=== PATIENT | male | born 1990 | race Caucasian/White ===

== ENCOUNTER → 2020-11-25 09:03 | Outpatient (BNVA) | payer MEDICAID, SELFPAY | PROVIDERS: Family Provider Nurse Practitioner Family; Visit Provider Registered Nurse | DX: S06.9X1A Unspecified intracranial injury with loss of consciousness of 30 minutes or less, initial encounter (principal) | CPT/HCPCS: 80053; 82607; 85025; 86141 ==

== ENCOUNTER → 2020-12-02 11:23 | Outpatient (BNVA) | payer MEDICAID, SELFPAY | PROVIDERS: Family Provider Nurse Practitioner Family; Visit Provider Registered Nurse | DX: M1A.0710 Idiopathic chronic gout, right ankle and foot, without tophus (tophi) (principal) | CPT/HCPCS: 80053; 84550; 85651; 86140 ==

== ENCOUNTER → 2020-12-03 09:09 | Outpatient (BNVA) | payer MEDICAID, SELFPAY | PROVIDERS: Family Provider Nurse Practitioner Family; Visit Provider Registered Nurse | DX: R79.82 Elevated C-reactive protein (CRP) (principal) | CPT/HCPCS: 86431 ==

== ENCOUNTER → 2021-08-03 12:10 | Outpatient (BNVA) | payer MEDICAID, SELFPAY | PROVIDERS: Family Provider Nurse Practitioner Family; PCP Registered Nurse; Referring Provider Registered Nurse; Visit Provider Specialist | DX: R41.1 Anterograde amnesia (principal); G43.711 Chronic migraine without aura, intractable, with status migrainosus; F41.8 Other specified anxiety disorders; S06.9X1S Unspecified intracranial injury with loss of consciousness of 30 minutes or less, sequela; V89.2XXS Person injured in unspecified motor-vehicle accident, traffic, sequela | CPT/HCPCS: 96116; 99204; 99205 ==

== ENCOUNTER → 2022-03-17 11:39 | Outpatient (BNVA) | payer MEDICAID, SELFPAY | PROVIDERS: Family Provider Nurse Practitioner Family; PCP Registered Nurse; Visit Provider Registered Nurse | DX: M1A.0710 Idiopathic chronic gout, right ankle and foot, without tophus (tophi) (principal) | CPT/HCPCS: 80053; 85025 ==

== ENCOUNTER 2022-05-17 18:40 | Inpatient (IN) | payer MEDICAID, SELFPAY ==
[2022-05-17 18:45] VITALS: BP 144/84; PULSE 87; RESP 16; TEMP 36.5; O2SAT 97
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
[2022-05-17 19:22] LABS: Basophils # 0.1 10^3/uL (0.0-0.1); Basophils % 0.9 %; Eosinophils # 0.2 10^3/uL (0.0-0.8); Eosinophils % 1.6 %; Hematocrit 49.8 % (42.0-52.0); Hemoglobin 16.2 g/dL (11.7-16.6); Lymphocytes # 3.4 10^3/uL (0.8-4.8); Lymphocytes % 35.3 %; Mean Corpuscular HGB Conc 32.5 g/dL (30.0-36.0); Mean Corpuscular Hemoglobin 28.2 pg (28.0-34.0); Mean Corpuscular Volume 86.6 fl (80-94); Mean Platelet Volume 10.5 fL (7.4-10.4); Monocytes # 0.7 10^3/uL (0.2-0.9); Neutrophils # 5.27 10^3/uL (1.8-7.7); Neutrophils % 54.9 %; Nucleated Red Blood Cells % 0 %; Platelet Count 328 10^3/cmm (130-400); Red Blood Count 5.75 10^6/uL (4.1-5.3); Red Cell Distribution Width 13.5 % (12.1-15.1); White Blood Count 9.6 10^3/uL (4.0-10.0)
[2022-05-17 19:40] LABS: Acetaminophen < 5.0 ug/mL (10-30); Alanine Aminotransferase 57 U/L (0-41); Albumin Level 4.7 g/dL (3.5-5.2); Alcohol Level < 10 mg/dL (0-10); Alkaline Phosphatase 119 U/L (40-130); Anion Gap 16.1 (5-19); Aspartate Amino Transferase 38 U/L (0-40); Blood Urea Nitrogen 8 mg/dL (6-20); Calcium 9.1 mg/dL (8.5-10.5); Carbon Dioxide 23 mmol/L (22-29); Chloride 107 mmol/L (98-107); Globulin 3.5 g/dL (1.3-4.6); Glomerular Filtration Rate 190.3 mL/min (90-130); Glucose 80 mg/dL (65-115); Osmolality Calculated 291 mOsm/kg (285-295); Potassium 4.1 mmol/L (3.5-5.1); Salicylate < 0.3 mg/dL (3-10); Sodium 142 mmol/L (136-145); Total Bilirubin 0.3 mg/dL (0.15-1.2); Total Protein 8.2 g/dL (6.6-8.7)
[2022-05-17 21:03] VITALS: BP 129/97; PULSE 87; RESP 16; O2SAT 96
[2022-05-17 21:12] VITALS: BP 131/90; PULSE 82; RESP 22; TEMP 36.4; O2SAT 96
[2022-05-17 21:40] VITALS: BP 131/90; PULSE 82; RESP 22; TEMP 36.4; O2SAT 96
[2022-05-17 21:55] LABS: Thyroid Stimulating Hormone 3.35 uIU/mL (0.27-4.20)
[2022-05-17 22:22] LABS: Amphetamines Screen Urine Negative (Negative); Barbiturates Screen Urine Negative (Negative); Benzodiazepines Screen Urine Negative (Negative); Cocaine Screen Urine Negative (Negative); Opiate Screen Urine Negative (Negative); PCP Screen Urine Negative (Negative); THC Screen Urine Negative (Negative)
[2022-05-17] MEDS: hyDROXYzine 25 mg Capsule 50 MG PO (22:24)
[2022-05-17] MEDS: trazodone 50 mg Tablet PO (22:24)
[2022-05-17] MEDS: nicotine 2 mg Gum BUCCAL (22:39)
[2022-05-18 06:00] VITALS: BP 97/62; PULSE 88; RESP 20; TEMP 36.6; O2SAT 97
[2022-05-18] MEDS: nicotine 21 mg Patch 1 PATCH TRANSDERMA (11:28)
[2022-05-18 14:00] VITALS: BP 106/75; PULSE 99; RESP 16; TEMP 36.7; O2SAT 98
[2022-05-18] MEDS: nicotine 4 mg lozenge MUCOUS MEM ×3 (15:08→19:12)
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
[2022-05-18] MEDS: venlafaxine ER (24HR) 150 mg Capsule PO (17:03)
[2022-05-18] MEDS: hyDROXYzine 25 mg Capsule 50 MG PO (20:23)
[2022-05-18] MEDS: trazodone 50 mg Tablet PO (20:24)
[2022-05-18 22:00] VITALS: BP 125/84; PULSE 90; RESP 16; TEMP 36.4; O2SAT 95
[2022-05-19 06:00] VITALS: RESP 17
[2022-05-19] MEDS: venlafaxine ER (24HR) 150 mg Capsule PO (09:32)
[2022-05-19] MEDS: allopurinol 100 mg Tablet 200 MG PO (09:32)
[2022-05-19] MEDS: nicotine 4 mg lozenge MUCOUS MEM ×4 (11:01→21:50)
[2022-05-19 14:00] VITALS: BP 149/84; PULSE 95; RESP 18; TEMP 36.7; O2SAT 95
--- NOTE | 2022-05-19 17:39 | W.PM.NPUPNS ---
Subjective NPU Subjective: Patient is a 32-year-old white male with significant history of traumatic brain injury and head trauma with significant history of loss of consciousness. Patient had acknowledged having problems with managing his anger. He states that he had been feeling calm here. He had endorsed some depression and stated that he was motivated to get help with managing his anger. He had attended groups today. He had reported having increased problems with managing his frustration and stated that he continued to at times have intense anger outbursts. Patient was not aggressive here on the unit and appeared to be compliant and friendly Mental Status Exam MSE Comments: This is a casually dressed white male who appeared in no acute distress. His gait was slow and steady with a slight limp noted on his left side. His speech appeared to have some dysarthria but normal in regards to productivity and volume. There is no clear evidence of any tics or tremors appreciated. His mood was described as okay. His affect was blunted. There was no clear evidence of delusional thinking. He did not appear to be responding to internal stimuli. His thought process was linear and logical. He had denied suicidal ideation and denied any homicidal ideation. He was alert and oriented to place year but not month day or date. Recent and remote memory appeared at baseline. His attention span was variable.. His insight and judgment were impaired. His impulse control appeared poor as well. 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 He would likely benefit from some medication adjustment to target anger issues and poor frustration tolerance. 1.? Engage patient in individual ,milieu, and group therapy 2.? We will attempt to gather collateral information from previous providers 3.? TO-15 minute checks on the unit 4. Restart current medications with consideration for the use of an antipsychotic to target agitation and aggression. 5. Start invega 3mg at night to target aggression Involuntary Hold Information 96 Hour Hold: 96 Hour Involuntary Admission: No Attestations NPU Medical Necessity Statement*: Inpatient hospitalization is medically necessary and appears to be clinically appropriate at this time. We will monitor and initiate medications as indicated with his likely length of stay of 5 to 7 days. 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
[2022-05-19 21:50] VITALS: BP 143/83; PULSE 97; RESP 15; TEMP 36.6; O2SAT 94
[2022-05-19] MEDS: trazodone 50 mg Tablet PO (21:50)
[2022-05-19] MEDS: hyDROXYzine 25 mg Capsule 50 MG PO (21:50)
[2022-05-19] MEDS: paliperidone ER 3 mg Tablet PO (21:50)
[2022-05-20 06:00] VITALS: RESP 17
[2022-05-20] MEDS: allopurinol 100 mg Tablet 200 MG PO (08:42)
[2022-05-20] MEDS: venlafaxine ER (24HR) 150 mg Capsule PO (08:42)
[2022-05-20] MEDS: nicotine 21 mg Patch 1 PATCH TRANSDERMA (12:14)
[2022-05-20 14:00] VITALS: BP 128/78; PULSE 95; RESP 20; TEMP 36.6; O2SAT 96
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
[2022-05-20] MEDS: hyDROXYzine 25 mg Capsule 50 MG PO (21:16)
[2022-05-20] MEDS: nicotine 4 mg lozenge MUCOUS MEM (21:16)
[2022-05-20] MEDS: paliperidone ER 3 mg Tablet PO (21:16)
[2022-05-20] MEDS: trazodone 50 mg Tablet PO (21:16)
[2022-05-20 22:00] VITALS: BP 126/76; PULSE 112; RESP 16; TEMP 36.7; O2SAT 94
[2022-05-21 06:00] VITALS: RESP 15
[2022-05-21] MEDS: venlafaxine ER (24HR) 150 mg Capsule PO (09:44)
[2022-05-21] MEDS: allopurinol 100 mg Tablet 200 MG PO (09:44)
[2022-05-21] MEDS: nicotine 4 mg lozenge MUCOUS MEM (09:47)
[2022-05-21] MEDS: nicotine 2 mg Gum BUCCAL ×2 (13:35→18:25)
[2022-05-21 14:00] VITALS: BP 122/78; PULSE 110; RESP 20; TEMP 36.6; O2SAT 95
--- NOTE | 2022-05-21 18:08 | P.NPUPN_ITS ---
Subjective NPU Subjective: Patient is a 32-year-old white male with significant history of traumatic brain injury and head trauma with significant history of loss of consciousness. Due wellness visit today. He had reported continued long-term problems with memory and having problems with anger although he had tolerated some difficulties on the milieu with other peers without becoming agitated or upset. He reported that he felt that this medicine was helping him with his anger. He had reported adequate sleep. He had stated that he was not having thoughts of hurting himself at this time but acknowledged that he had been having struggles with depression as well. Patient had been able to attend groups and was able to engage in his own self-care without any major difficulties. He had continued to reiterate that he would be likely staying with his father and taking a break from his common-law when discharged here. Substantially since the head trauma. Mental Status Exam MSE Comments: This is a casually dressed white male who appeared in no acute distress. His gait was slow and steady. His speech appeared to have some dysarthria but normal in regards to productivity and volume. There is no clear evidence of any tics or tremors appreciated. His mood was described as good.. His affect was flat. There was no clear evidence of delusional thinking. He did not appear to be responding to internal stimuli. His thought process was linear and logical. He had denied suicidal ideation and denied any homicidal ideation. He was alert and oriented to place year but not month day or date. Recent and remote memory appeared at baseline. His attention span was variable. His insight and judgmen t were impaired. His impulse control appeared guarded at this time. 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 He would likely benefit from some medication adjustment to target anger issues and poor frustration tolerance. 1.? Engage patient in individual ,milieu, and group therapy 2.? We will attempt to gather collateral information from previous providers 3.? TO-15 minute checks on the unit 4. Restart current medications with consideration for the use of an antipsychotic to target agitation and aggression. 5. Continue invega 3mg at night to target aggression, likely discharge tommorow. Involuntary Hold Information 96 Hour Hold: 96 Hour Involuntary Admission: No Attestations NPU Medical Necessity Statement*: Inpatient hospitalization is medically necessary and appears to be clinically appropriate at this time. Patient will likely be discharged tommorow. 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
[2022-05-21 22:00] VITALS: BP 123/79; PULSE 112; RESP 16; TEMP 36.6; O2SAT 96
[2022-05-21] MEDS: paliperidone ER 3 mg Tablet PO (22:06)
[2022-05-21] MEDS: hyDROXYzine 25 mg Capsule 50 MG PO (22:06)
[2022-05-21] MEDS: trazodone 50 mg Tablet PO (22:07)
[2022-05-22 06:00] VITALS: RESP 16
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
[2022-05-22] MEDS: allopurinol 100 mg Tablet 200 MG PO (10:12)
[2022-05-22] MEDS: venlafaxine ER (24HR) 150 mg Capsule PO (10:17)
[2022-05-22 13:55] VITALS: RESP 16
[2022-05-22 14:00] VITALS: BP 130/83; PULSE 112; RESP 18; TEMP 36.8; O2SAT 95
[2022-05-22] MEDS: nicotine 4 mg lozenge MUCOUS MEM (14:09)
[2022-05-22 16:05] VITALS: BP 130/83; PULSE 112; RESP 18; TEMP 36.8; O2SAT 95
--- NOTE | 2022-05-22 16:14 | PC.NURSE ---
written discharged instruction discussed and left with patient. pt stated understanding and compliance of instructions and medication compliance. pt called girlfriend to come and pick him up.
--- NOTE | 2022-05-22 17:31 | PC.NURSE ---
pt left in pov with family. states compliance with medication and discharge instructions.
== END 2022-05-22 17:33 | disposition home or self-care (01) | DRG 886 ==
LOC: ER 19:57 → NP 21:43
PROVIDERS: Admitting Provider Psychiatry & Neurology Psychiatry; Emergency Provider Emergency Medicine; PCP Registered Nurse; Visit Provider Psychiatry & Neurology Psychiatry
DX: F63.9 Impulse disorder, unspecified (principal); R45.851 Suicidal ideations; F41.8 Other specified anxiety disorders; Z87.820 Personal history of traumatic brain injury; F10.91 Alcohol use, unspecified, in remission; F15.91 Other stimulant use, unspecified, in remission; M10.9 Gout, unspecified
CPT/HCPCS: 80053; 80306; 80307; 84443; 85025; 97150; 97165; 99285

== ENCOUNTER → 2022-12-08 11:35 | Outpatient (BNVA) | payer MEDICAID, SELFPAY | PROVIDERS: PCP Registered Nurse; Visit Provider Nurse Practitioner Psychiatric/Mental Health | DX: Z79.899 Other long term (current) drug therapy (principal) | CPT/HCPCS: 80061; 83036 ==

== ENCOUNTER → 2023-12-12 09:17 | Outpatient (BNVA) | payer MEDICARE, SELFPAY | PROVIDERS: PCP Registered Nurse; Visit Provider Nurse Practitioner Psychiatric/Mental Health | DX: Z79.899 Other long term (current) drug therapy (principal) | CPT/HCPCS: 80053; 80061; 83036 ==

== ENCOUNTER 2024-10-13 13:18 | Inpatient (IN) | payer MEDICARE, SELFPAY ==
[2024-10-13 13:20] VITALS: BMI 33.9
--- OUTSIDE RECORDS SUMMARY | 2024-10-13 13:23 | XMS_ITS | Clinical Summary ---
Author Organization [facility] Address [address] [place]: Epic Prelude ADT [place] [address] Care Team Providers Care Hand Edge Bander Name Role Phone Lyle Martinez MD Primary Care Provider [phone] Allergies Active Allergy Reactions Criticality Noted Date Comments Aspirin Anaphylaxis High 11/16/2009 Medications venlafaxine ER 150 mg capsule,extended release 24 hr (EFFEXOR XR) Take 150 mg by mouth daily. Active paliperidone ER 3 mg tablet,extended release 24 hr (INVEGA) Take 6 mg by mouth daily in the morning. Active MELATONIN ORAL Take by mouth. Active allopurinoL (ZYLOPRIM) 100 mg tabletIndication s:Chronic gout without tophus, unspecified cause, unspecified site Take 1 Tablet (100 mg) by mouth 2 times daily. 180 Tablet 3 10/19/2023 Active Active Problems Problem Noted Date Diagnosed Date Recurrent major depressive disorder, in partial remission 10/19/2023 Chronic gout without tophus 10/19/2023 Encounters Date Type Department Care Team Description 09/24/2024 External Device Data [facility]STRACTION Provider, Abstract 09/11/2024 External Device Data [facility] Provider, Abstract 08/06/2024 External Device Data [facility]STRA[facility] Provider, Abstract from Last 3 Months Social History Tobacco Use Types Packs/Day Years Used Date Smoking Tobacco: Every Day Cigarettes Smokeless Tobacco: Former Tobacco Cessation:Ready to Q uit: Not Asked; Counseling Given: Not Answered Alcohol Use Standard Drinks/Week Comments No 0 (1 standard drink = 0.6 oz pur e alcohol) Sex and Gender Information Value Date Recorded Sex Assigned at Not on file Legal Sex Male 4:[address] INSPECTOR Gender Identity Not on file Sexual Orientation Not on file Last Filed Vital Signs Vital Sign Reading Time Taken Comments Blood Pressure 120/74 10/19/2023 11:04 AM CDT Pulse 70 10/19/2023 11:04 AM CDT Temperature 36 C (96.8 F) 10/19/2023 11:04 AM CDT Respiratory Rate 18 10/19/2023 11:04 AM CDT Oxygen Saturation 96% 10/19/2023 11:04 AM CDT Inhaled Oxygen Concentration - - Weight 119.7 kg (264 lb) 10/19/2023 11:04 AM CDT Height 180.3 cm (5' 11 ) 10/19/2023 11:04 AM CDT Body Mass Index 36.82 10/19/2023 11:04 AM CDT Plan of Treatment Upcoming Encounters Date Type Department Care Team (Late st Contact Info) Description 10/18/2024 11:00 AM CDT Office Visit [address] [phone] Lyle Martinez MD [address] [phone] Health Maintenance Due Date Last Done Comments Pre-Diabetes and Diabetes Screening 1988 DTAP/TDAP/TD VACCINES (1 - Tdap) 2007 HEPATITIS B VACCINES (1 of 3 - 19+ 3-dose series) 2007 Traditional Medicare (ACO) A nnual Wellness Visit 2007 HPV VACCINES (1 - 3-dose SCDM series) 2015 INFLUENZA VACCINE (#1) 2024 10/19/2023, 2023 Insurance MEDICAID [place]ARE PART A AND B Care Teams Hand Edge Bander Relationship Specialty Start Date End Date Lyle Martinez MD [address] [phone] PCP - General Family Practice 04/17/23
--- OUTSIDE RECORDS SUMMARY | 2024-10-13 13:23 | XMS_ITS | Encounter Summary ---
Author Organization [facility] Address [address] [place] [address] Care Team Providers Care Leasing Professional Name Role Phone Lyle Martinez MD Primary Care Provider [phone] Encounter Details Date Type Department Care Team (Late st Contact Info) Description 10/22/2020 Lab Requisition [facility] [address] [place] [phone] [facility], External Provider [address] [place] [address] Social History Tobacco Use Types Packs/Day Years Used Date Smoking Tobacco: Former Cigarettes Smokeless Tobacco: Former Alcohol Use Standard Drinks/Week Comments No 0 (1 standard drink = 0.6 oz pur e alcohol) Sex and Gender Information Value Date Recorded Sex Assigned at Not on file Legal Sex Male 4:09 AM SUPPORT SERVICES SPECIALIST Gender Identity Not on file Sexual Orientation Not on file documented as of this encounter Plan of Treatment Upcoming Encounters Date Type Department Care Team (Late st Contact Info) Description 10/18/2024 11:00 AM CDT Office Visit [facility] Medicine [address] [phone] Lyle Martinez MD [address] [phone] documented as of this encounter Procedures Procedure Name Priority Date/Time Associated Diagnosis Comments BLOOD CULTURE Routine 10/22/2020 5:05 PM CDT documented in this encounter Results * BLOOD CULTURE (10/22/2020 5:05 PM CDT) BLOOD CULTURE No growth 10/27/2020 7:53 PM CDT [facility] Blood Collection / Unknown 10/22/2020 5:05 PM CDT 10/22/2020 7:35 PM CDT us External Provider [facility] MICROBIOLOGY - GENERAL ORD ERABLES Final Result [facility] CLIA # [id number] [id number] [place] [address] documented in this encounter Visit Diagnoses Not on filedocumented in this encounter Care Teams Leasing Professional Relationship Specialty Start Date End Date Lyle Martinez MD [address] [phone] PCP - General Family Practice 04/17/23 documented as of this encounter
[2024-10-13 13:26] VITALS: BP 134/102; PULSE 104; RESP 16; TEMP 36.6; O2SAT 96
--- NOTE | 2024-10-13 13:29 | W.ED.PSYCHS ---
HPI - Psych General: Chief Complaint: Psychiatric Symptoms Stated Complaint: 96 hour hold Time Seen by Provider: 10/13/24 13:20 Source: patient and police Limitations: no limitations History of Present Illness: 34-year-old male here with police under 96-hour hold. Patient has been making statements that he wants to kill himself and also has been threatening his girlfriend and her boyfriend. He does have a history of meth and cocaine abuse. Associated symptoms: Reports suicidal ideation Related Data Home Medications ?Medication ?Instructions ?Recorded ?Confirmed allopurinol 100 mg tablet 200 mg PO DAILY 05/17/22 10/13/24 melatonin 3 mg tablet 3 mg PO BEDTIME 05/17/22 10/13/24 Previous Rx's ?Medication ?Instructions ?Recorded paliperidone 3 mg tablet,extended 3 mg PO BEDTIME #90 tabs 09/30/24 release 24 hr venlafaxine 150 mg 150 mg PO QAM #90 caps 09/30/24 capsule,extended release 24 hr Allergies Allergy/AdvReac Type Severity Reaction Status Date / Time aspirin Allergy Unknown Verified 09/30/24 14:00 Review of Systems Const: Denies: fever(s) GI: Denies: abdominal pain Neuro: Denies: headache(s) Psych: Reports: suicidal ideation [facility] ED PFSH: Medical History Partner relationship problems Psychiatric care Diffuse axonal brain injury Depression with anxiety Gout Social History Smoking and tobacco/nicotine status: never used tobacco/nicotine Alcohol intake: never Substance/Drug Use: former Adopted: No Caregiver/support person: No Lives independently: No Household members: significant other and children Sexually active: Yes Do you think of yourself as: Straight/Heterosexual Current gender identity: Male Physical Exam Const: COMMON NORMALS: no acute distress, patient oriented x3 and healthy appearing HENMT: COMMON NORMALS: normocephalic and atraumatic HEAD & SCALP: normocephalic and atraumatic Eye: COMMON NORMALS: conjunctivae normal CONJUNCTIVA: Yes conjunctivae normal Neck/C-Spine: COMMON NORMALS: full ROM and supple Chest: COMMONS NORMALS: normal inspection of the chest Resp: COMMON NORMALS: normal respiratory effort Cardio: COMMON NORMALS: regular rate RATE: regular rate Extremity: COMMON NORMALS: normal to inspection and full ROM Neuro: COMMON NORMALS: patient oriented x3, moves all extremities and no focal motor deficits Psych: COMMON NORMALS: mental status grossly normal and cooperative SPEECH: Yes excessive THOUGHT CONTENT: Yes Suicidality present Skin: COMMON NORMALS: no rashes or lesions noted and no wounds GENERAL SKIN EXAM: no rashes or lesions noted Course Vital Signs: Vital signs: Vital Signs Temperature 97.9 F 10/13/24 13:26 Pulse Rate 104 H 10/13/24 13:26 Respiratory Rate 16 10/13/24 13:26 Blood Pressure 134/102 10/13/24 13:26 Pulse Oximetry 96 10/13/24 13:26 Oxygen Delivery Me thod Room Air 10/13/24 13:26 MDM - Psych Medical Decision Making Patient presents here with suicidal ideations placed on a 96-hour hold he is medically cleared spoke to psychiatrist will admit. Medical Records I reviewed the patient's medical records. Lab Data I reviewed the patient's lab results. 10/13/24 13:35 10/13/24 13:35 Laboratory Results WBC 8.66 10^3/uL (3.29-11.43) 10/13/24 13:35 RBC 5.31 10^6/uL (3.85-5.65) 10/13/24 13:35 Hgb 15.10 g/dL (11.27-16.99) 10/13/24 13:35 Hct 45.7 % (37-53) 10/13/24 13:35 MCV 86.1 fl (82-101) 10/13/24 13:35 MCH 28.4 pg (27-33) 10/13/24 13:35 MCHC 33.0 g/dL (30-55) 10/13/24 13:35 RDW 13.8 % (12.1-15.1) 10/13/24 13:35 Plt Count 314 10^3/cmm (157-399) 10/13/24 13:35 MPV 10.7 fL (7.4-10.4) H 10/13/24 13:35 Neut % (Auto) 63.4 % 10/13/24 13:35 Lymph % (Auto) 26.9 % 10/13/24 13:35 [place] % (Auto) 7.2 % 10/13/24 13:35 Eos % (Auto) 1.4 % 10/13/24 13:35 Baso % (Auto) 0.9 % 10/13/24 13:35 Neut # (Auto) 5.49 10^3/uL (1.8-7.7) 10/13/24 13:35 Lymph # (Auto) 2.3 10^3/uL (0.8-4.8) 10/13/24 13:35 [place] # (Auto) 0.6 10^3/uL (0.2-0.9) 10/13/24 13:35 Eos # (Auto) 0.1 10^3/uL (0.0-0.8) 10/13/24 13:35 Baso # (Auto) 0.1 10^3/uL (0.0-0.1) 10/13/24 13:35 Nucleated RBC % (auto) 0 % 10/13/24 13:35 Nucleated RBCs # 0.0 /100WBC 10/13/24 13:35 Sodium 140 mmol/L (136-145) 10/13/24 13:35 Potassium 3.7 mmol/L (3.5-5.1) 10/13/24 13:35 Chloride 104 mmol/L (98-107) 10/13/24 13:35 Carbon Dioxide 21 mmol/L (22-29) L 10/13/24 13:35 Anion Gap 18.7 (5-19) 10/13/24 13:35 BUN 10 mg/dL (6-20) 10/13/24 13:35 Creatinine 0.6 mg/dL (0.7-1.2) L 10/13/24 13:35 GFR Calculation 152.4 mL/min (90-130) H 10/13/24 13:35 Glucose 100 mg/dL (65-115) 10/13/24 13:35 Calculated Osmolality 289 mOsm/kg (285-295) 10/13/24 13:35 Calcium 9.6 mg/dL (8.5-10.5) 10/13/24 13:35 Total Bilirubin 0.7 mg/dL (0.15-1.2) 10/13/24 13:35 AST 65 U/L (0-40) H 10/13/24 13:35 ALT 75 U/L (0-41) H 10/13/24 13:35 Alkaline Phosphatase 101 U/L (40-130) 10/13/24 13:35 Total Protein 8.2 g/dL (6.6-8.7) 10/13/24 13:35 Albumin 4.2 g/dL (3.5-5.2) 10/13/24 13:35 Globulin 4.0 g/dL (1.3-4.6) 10/13/24 13:35 Salicylates < 0.3 mg/dL (3-10) L 10/13/24 13:35 Acetaminophen < 5.0 ug/mL (10-30) L 10/13/24 13:35 Ethyl Alcohol < 10 mg/dL (0-10) 10/13/24 13:35 No radiology studies performed this visit Discharge Plan Discharge Patient Disposition: Admitted As Inpatient Clinical Impression: Suicidal ideation Condition: Stable Coding Level of Care Code ED Terrazzo Roller for Mauro Perkins
[2024-10-13 13:40] LABS: Hematocrit 45.7 % (37-53); Hemoglobin 15.10 g/dL (11.27-16.99); Mean Corpuscular HGB Conc 33.0 g/dL (30-55); Mean Corpuscular Hemoglobin 28.4 pg (27-33); Mean Corpuscular Volume 86.1 fl (82-101); Nucleated Red Blood Cells % 0 %; Platelet Count 314 10^3/cmm (157-399); Red Blood Count 5.31 10^6/uL (3.85-5.65); White Blood Count 8.66 10^3/uL (3.29-11.43)
[2024-10-13] MEDS: haloperidol inj 5 mg/mL INJ 1 mL IM (13:44)
[2024-10-13] MEDS: LORazepam 1 MG/0.5 ML injection 2 MG IM (13:45)
[2024-10-13 13:58] LABS: Acetaminophen < 5.0 ug/mL (10-30); Alanine Aminotransferase 75 U/L (0-41); Albumin Level 4.2 g/dL (3.5-5.2); Alcohol Level < 10 mg/dL (0-10); Alkaline Phosphatase 101 U/L (40-130); Anion Gap 18.7 (5-19); Aspartate Amino Transferase 65 U/L (0-40); Blood Urea Nitrogen 10 mg/dL (6-20); Calcium 9.6 mg/dL (8.5-10.5); Carbon Dioxide 21 mmol/L (22-29); Chloride 104 mmol/L (98-107); Creatinine Clr Calc Pharmacy 221.2870; Globulin 4.0 g/dL (1.3-4.6); Glucose 100 mg/dL (65-115); Osmolality Calculated 289 mOsm/kg (285-295); Potassium 3.7 mmol/L (3.5-5.1); Salicylate < 0.3 mg/dL (3-10); Sodium 140 mmol/L (136-145); Total Protein 8.2 g/dL (6.6-8.7)
[2024-10-13 14:11] VITALS: BP 128/86; PULSE 99; O2SAT 96
[2024-10-13 14:25] VITALS: BP 146/91; PULSE 113; RESP 16; TEMP 37.2; O2SAT 96
[2024-10-13 14:27] VITALS: BP 133/77; PULSE 79; RESP 16; TEMP 36.7; O2SAT 97
--- NOTE | 2024-10-13 15:26 | PC.NURSE ---
Pts rights were read to him at 1335. Security was present
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
[2024-10-13 21:04] LABS: PCP Screen Urine Negative (Negative)
[2024-10-13 22:00] VITALS: BP 128/73; PULSE 76; RESP 21; TEMP 36.6; O2SAT 98
[2024-10-14 06:00] VITALS: BP 112/72; PULSE 77; RESP 18; O2SAT 98
[2024-10-14] MEDS: venlafaxine ER (24HR) 150 mg Capsule PO (07:33)
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
[2024-10-14 14:00] VITALS: BP 126/80; PULSE 99; RESP 16; TEMP 36.8; O2SAT 98
[2024-10-14 19:59] VITALS: BP 119/78; PULSE 104; RESP 16
[2024-10-15 06:00] VITALS: BP 123/87; PULSE 100; RESP 16; TEMP 36.7; O2SAT 96
[2024-10-15] MEDS: venlafaxine ER (24HR) 150 mg Capsule PO (09:19)
[2024-10-15 13:08] VITALS: BP 109/72; PULSE 96; RESP 18; TEMP 37; O2SAT 99
--- NOTE | 2024-10-15 14:15 | PC.NURSE ---
Dr. Kaplan gave verbal order to DC one to one sitter.
[2024-10-15 18:55] VITALS: BP 118/78; PULSE 78; RESP 20; TEMP 36.6; O2SAT 94
[2024-10-15 19:50] VITALS: BP 109/65; PULSE 73; RESP 17; TEMP 36.5; O2SAT 99
--- NOTE | 2024-10-15 20:05 | P.NPUPN_ITS ---
Subjective NPU 2 Subjective: Patient presented today reporting that he is feeling a little better. We discussed the fact that avoidance of methamphetamines likely will do that. We continue to discuss the role that is addictive behavior has played in him being here. He acknowledges that it has been an issue. He denied any side effects of his medications or any concerns and we discussed working with his family to identify if there are any additional concerns and making sure he is connected with the appropriate level of aftercare and follow-up. Mental Status Exam 2 MSE Comments: This is an overweight versus obese white male in hospital scrubs with limited grooming and poor eye contact. No abnormal movements except for significant psychomotor retardation. Cooperative with exam in moderate to extreme distress. Speech was decreased in volume with some dysarthria. Mood described as okay I guess, affect irritable. Thought process linear. Thought content: Patient denied suicidal or homicidal ideation, there were no delusions reported or noted, he denied any auditory or visual hallucinations. Attention and concentration were intact and memory appeared unreliable but likely intentionally so but none were formally tested. He was alert and oriented x 3. Insight, judgment and impulse control were impaired. Vitals/I&O/Wt Last Vital Signs Temp 97.7 F 10/15/24 19:50 Pulse 73 10/15/24 19:50 Resp 17 10/15/24 19:50 BP 109/65 10/15/24 19:50 Pulse Ox 99 10/15/24 19:50 O2 Del Method Room Air 10/15/24 19:50 O2 Flow Rate 95 10/14/24 19:59 Data NPU 10/13/24 13:35 10/13/24 13:35 A&P Assessment and plan 1. Impulse control disorder, unspecified: 2. Diffuse axonal brain injury: 3. 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 Methamphetamine use disorder, severe: 5. Suicidal ideation: Plan: This is a 34-year-old white male with a history of significant head trauma with reports of increased problems with mental health and addiction issues who presents on a 96-hour hold he reports by his parents as he downplays the significance of addiction and these issues. Currently under evaluation on a 96- hour involuntary psychiatric hold following parental concern related to social media posts. History of prior psychiatric hospitalization for suicidal ideation two years ago. No current suicidal ideation, homicidal ideation, hallucinations, or paranoia reported. History of substance use. Continues on current psychiatric medication 1. Continue current medications. Consider possible changes. 2. Continue every 15 minute checks for safety. 3. Encourage individual, group and milieu therapy. 4. Encourage sober living treatment after discharge at the highest level care to which he is willing to commit. 5. Obtain collateral information. 6. Evaluate against the backdrop of the 96-hour hold. PDMP PDMP Reviewed: Not Reviewed Involuntary Hold Information 2 Hold Status: Legal Status: 96 Hour Hold Date/Time Hold Expires: 10/18/24 @0001 96 Hour Hold: 96 Hour Involuntary Admission: No Attestations NPU 2 Medical Necessity Statement*: Inpatient hospitalization is medically necessary the clinically appropriate intervention at this time. We will monitor/initiate medications and make changes as indicated. His likely length of stay is 4-6 days. 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
[2024-10-16 06:00] VITALS: BP 129/73; PULSE 73; RESP 18; TEMP 36.7; O2SAT 97
--- NOTE | 2024-10-16 08:42 | P.NPUPN_ITS ---
Subjective NPU 2 Subjective: Patient presented today reporting that life is going all right. He endorsed a plan to move back in with his parents and that by doing that he feels confident that things will improve dramatically. He acknowledges that in that situation there would be no drug use. He reports that otherwise he plans on keeping things the same and he denied any side effects of the medication. Mental Status Exam 2 MSE Comments: This is an overweight versus obese white male in hospital scrubs with limited grooming and poor eye contact. No abnormal movements except for significant psychomotor retardation. Cooperative with exam in mild to moderate distress. Speech was decreased in volume with some dysarthria. Mood described as a little better, affect irritable. Thought process linear. Thought content: Patient denied suicidal or homicidal ideation, there were no delusions reported or noted, he denied any auditory or visual hallucinations. Attention and concentration were intact and memory appeared unreliable but likely intentionally so but none were formally tested. He was alert and oriented x 3. Insight, judgment and impulse control were impaired. Vitals/I&O/Wt Last Vital Signs Temp 97.9 F 10/16/24 06:00 Pulse 77 10/16/24 06:00 Resp 18 10/16/24 06:00 BP 129/73 10/16/24 06:00 Pulse Ox 99 10/16/24 06:00 O2 Del Method Room Air 10/16/24 06:00 O2 Flow Rate 95 10/14/24 19:59 Data NPU 10/13/24 13:35 10/13/24 13:35 A&P Assessment and plan 1. Impulse control disorder, unspecified: 2. Diffuse axonal brain injury: 3. 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 Methamphetamine use disorder, severe: 5. Suicidal ideation: Plan: This is a 34-year-old white male with a history of significant head trauma with reports of increased problems with mental health and addiction issues who presents on a 96-hour hold he reports by his parents as he downplays the significance of addiction and these issues. Currently under evaluation on a 96- hour involuntary psychiatric hold following parental concern related to social media posts. History of prior psychiatric hospitalization for suicidal ideation two years ago. No current suicidal ideation, homicidal ideation, hallucinations, or paranoia reported. History of substance use. Continues on current psychiatric medication 1. Continue current medications. Consider possible changes. 2. Continue every 15 minute checks for safety. 3. Encourage individual, group and milieu therapy. 4. Encourage sober living treatment after discharge at the highest level care to which he is willing to commit. 5. Obtain collateral information. 6. Evaluate against the backdrop of the 96-hour hold. PDMP PDMP Reviewed: Not Reviewed Involuntary Hold Information 2 Hold Status: Legal Status: 96 Hour Hold Date/Time Hold Expires: 10/18/24 @0001 96 Hour Hold: 96 Hour Involuntary Admission: No Attestations NPU 2 Medical Necessity Statement*: Inpatient hospitalization is medically necessary the clinically appropriate intervention at this time. We will monitor/initiate medications and make changes as indicated. His likely length of stay is 3-5 days. 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
[2024-10-16] MEDS: venlafaxine ER (24HR) 150 mg Capsule PO (08:46)
[2024-10-16 13:38] VITALS: BP 113/75; PULSE 77; RESP 18; TEMP 36.6; O2SAT 99
[2024-10-16 19:41] VITALS: BP 118/78; PULSE 78; RESP 18; TEMP 36.5; O2SAT 97
[2024-10-17 06:00] VITALS: BP 120/74; PULSE 66; RESP 17; TEMP 36.6; O2SAT 98
[2024-10-17] MEDS: venlafaxine ER (24HR) 150 mg Capsule PO (08:30)
[2024-10-17 12:54] VITALS: BP 107/74; PULSE 74; RESP 16; TEMP 36.6; O2SAT 98
--- NOTE | 2024-10-17 15:37 | P.NPUPN_ITS ---
Subjective NPU 2 Subjective: Patient presented today reporting that he is doing better. He reports that his parents are not allowing him to come home which will provide additional supports. However they are trying to decide about rehab. We discussed the 21- day hold that is in place to ensure that he actually leaves with some kind of treatment plan. He denied any side effects of the medication and was ambivalent about sober living treatment per staff reports and direct observation. Mental Status Exam 2 MSE Comments: This is an overweight versus obese white male in hospital scrubs with limited grooming and poor eye contact. No abnormal movements except for significant psychomotor retardation. Cooperative with exam in mild to moderate distress. Speech was decreased in volume with some dysarthria. Mood described as a little better, affect less irritable. Thought process linear. Thought content: Patient denied suicidal or homicidal ideation, there were no delusions reported or noted, he denied any auditory or visual hallucinations. Attention and concentration were intact and memory appeared unreliable but likely intentionally so but none were formally tested. He was alert and oriented x 3. Insight, judgment and impulse control were impaired. Vitals/I&O/Wt Last Vital Signs Temp 97.9 F 10/17/24 12:54 Pulse 74 10/17/24 12:54 Resp 16 10/17/24 12:54 BP 107/74 10/17/24 12:54 Pulse Ox 98 10/17/24 12:54 O2 Del Method Room Air 10/17/24 12:54 O2 Flow Rate 95 10/14/24 19:59 Data NPU 10/13/24 13:35 10/13/24 13:35 A&P Assessment and plan 1. Impulse control disorder, unspecified: 2. Diffuse axonal brain injury: 3. 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 Methamphetamine use disorder, severe: 5. Suicidal ideation: Plan: This is a 34-year-old white male with a history of significant head trauma with reports of increased problems with mental health and addiction issues who presents on a 96-hour hold he reports by his parents as he downplays the significance of addiction and these issues. Currently under evaluation on a 96- hour involuntary psychiatric hold following parental concern related to social media posts. History of prior psychiatric hospitalization for suicidal ideation two years ago. No current suicidal ideation, homicidal ideation, hallucinations, or paranoia reported. History of substance use. Continues on current psychiatric medication 1. Continue current medications. Consider possible changes. 2. Continue every 15 minute checks for safety. 3. Encourage individual, group and milieu therapy. 4. Encourage sober living treatment after discharge at the highest level care to which he is willing to commit. 5. Obtain collateral information. Will speak to parents about treatment and him returning home. 6. Evaluate against the backdrop of the 96-hour hold. PDMP PDMP Reviewed: Not Reviewed Involuntary Hold Information 2 Hold Status: Legal Status: 96 Hour Hold Date/Time Hold Expires: 10/18/24 @0001 96 Hour Hold: 96 Hour Involuntary Admission: No Attestations NPU 2 Medical Necessity Statement*: Inpatient hospitalization is medically necessary the clinically appropriate intervention at this time. We will monitor/initiate medications and make changes as indicated. His likely length of stay is 2-4 days. 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
[2024-10-17 20:54] VITALS: BP 124/82; PULSE 74; RESP 18; TEMP 36.6; O2SAT 96
[2024-10-18 06:00] VITALS: BP 130/71; PULSE 99; RESP 18; TEMP 36.5; O2SAT 97
[2024-10-18] MEDS: venlafaxine ER (24HR) 150 mg Capsule PO (08:02)
--- NOTE | 2024-10-18 10:53 | NUR.SHIFT ---
Pt states that he slept good last night. Denies anxiety, but rates depression 6/10. No reports of SI/HI or hallucinations. No pain reported. He is calm and cooperative on assessment.
--- NOTE | 2024-10-18 13:07 | P.NPUPN_ITS ---
Subjective NPU 2 Subjective: Patient presents today reporting he is doing okay. He is demonstrating some ambivalence about treatment per staff reports and direct conversation. We discussed him we will need to have active treatment for his addiction and he was noncommittal but is parents and reported a desire for him to engage in active treatment prior to then allow him to stay there and also had a conversation of what treatment would be deemed acceptable for that agreement. We discussed the treatment team's physician that inpatient rehab would be the best selection at this time given the situation. He denied any side effects to his medication. Mental Status Exam 2 MSE Comments: This is an overweight versus obese white male in hospital scrubs with limited grooming and poor eye contact. No abnormal movements except for significant psychomotor retardation. Cooperative with exam in mild to moderate distress. Speech was decreased in volume with some dysarthria. Mood described as a little better, affect less irritable. Thought process linear. Thought content: Patient denied suicidal or homicidal ideation, there were no delusions reported or noted, he denied any auditory or visual hallucinations. Attention and concentration were intact and memory appeared unreliable but likely intentionally so but none were formally tested. He was alert and oriented x 3. Insight, judgment and impulse control were impaired. Vitals/I&O/Wt Last Vital Signs Temp 98.2 F 10/18/24 20:13 Pulse 93 10/18/24 20:13 Resp 18 10/18/24 20:13 BP 111/75 10/18/24 20:13 Pulse Ox 94 10/18/24 20:13 O2 Del Method Room Air 10/18/24 20:13 O2 Flow Rate 95 10/14/24 19:59 Data NPU 10/13/24 13:35 10/13/24 13:35 A&P Assessment and plan 1. Impulse control disorder, unspecified: 2. Diffuse axonal brain injury: 3. 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 Methamphetamine use disorder, severe: 5. Suicidal ideation: Plan: This is a 34-year-old white male with a history of significant head trauma with reports of increased problems with mental health and addiction issues who presents on a 96-hour hold he reports by his parents as he downplays the significance of addiction and these issues. Currently under evaluation on a 96- hour involuntary psychiatric hold following parental concern related to social media posts. History of prior psychiatric hospitalization for suicidal ideation two years ago. No current suicidal ideation, homicidal ideation, hallucinations, or paranoia reported. History of substance use. Continues on current psychiatric medication 1. Continue current medications. Consider possible changes. 2. Continue every 15 minute checks for safety. 3. Encourage individual, group and milieu therapy. 4. Encourage sober living treatment after discharge at the highest level care to which he is willing to commit. 5. Obtain collateral information. Will speak to parents about treatment and him returning home. 6. Evaluate against the backdrop of the 96-hour hold. PDMP PDMP Reviewed: Not Reviewed Involuntary Hold Information 2 Hold Status: Legal Status: 96 Hour Hold Date/Time Hold Expires: @0001 96 Hour Hold: 96 Hour Involuntary Admission: No Attestations NPU 2 Medical Necessity Statement*: Inpatient hospitalization is medically necessary the clinically appropriate intervention at this time. We will monitor/initiate medications and make changes as indicated. His likely length of stay is 2-4 days. 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
[2024-10-18 13:12] VITALS: BP 124/82; PULSE 94; RESP 20; TEMP 36.7; O2SAT 99
[2024-10-18 20:13] VITALS: BP 111/75; PULSE 93; RESP 18; TEMP 36.8; O2SAT 94
--- NOTE | 2024-10-19 06:45 | PC.NURSE ---
pt refused vs, nurse notified, resp 17
[2024-10-19] MEDS: venlafaxine ER (24HR) 150 mg Capsule PO (08:08)
[2024-10-19 14:00] VITALS: BP 119/78; PULSE 105; RESP 17; TEMP 36.3; O2SAT 98
--- NOTE | 2024-10-19 20:55 | P.NPUPN_ITS ---
Subjective NPU 2 Subjective: Patient presents today continuing to be ambivalent about treatment. He reports that he is not sure that rehab is necessary. He supposed be communicating with his family about what their expectations are for him to return home. He denied any challenges with his medications denying any side effects. We discussed the treatment team's position that happening inpatient rehab will be his best approach. Mental Status Exam 2 MSE Comments: This is an overweight versus obese white male in hospital scrubs with limited grooming and poor eye contact. No abnormal movements except for significant psychomotor retardation. Cooperative with exam in mild to moderate distress. Speech was decreased in volume with some dysarthria. Mood described as a little better, affect less irritable. Thought process linear. Thought content: Patient denied suicidal or homicidal ideation, there were no delusions reported or noted, he denied any auditory or visual hallucinations. Attention and concentration were intact and memory appeared unreliable but likely intentionally so but none were formally tested. He was alert and oriented x 3. Insight, judgment and impulse control were impaired. Vitals/I&O/Wt Last Vital Signs Temp 97.4 F L 10/19/24 14:00 Pulse 105 H 10/19/24 14:00 Resp 17 10/19/24 14:00 BP 119/78 10/19/24 14:00 Pulse Ox 98 10/19/24 14:00 O2 Del Method Room Air 10/18/24 20:13 O2 Flow Rate 95 10/14/24 19:59 Data NPU 10/13/24 13:35 10/13/24 13:35 A&P Assessment and plan 1. Impulse control disorder, unspecified: 2. Diffuse axonal brain injury: 3. 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 Methamphetamine use disorder, severe: 5. Suicidal ideation: Plan: This is a 34-year-old white male with a history of significant head trauma with reports of increased problems with mental health and addiction issues who presents on a 96-hour hold he reports by his parents as he downplays the significance of addiction and these issues. Currently under evaluation on a 96- hour involuntary psychiatric hold following parental concern related to social media posts. History of prior psychiatric hospitalization for suicidal ideation two years ago. No current suicidal ideation, homicidal ideation, hallucinations, or paranoia reported. History of substance use. Continues on current psychiatric medication 1. Continue current medications. Consider possible changes. Consider increasing the Invega to 6 mg p.o. daily 2. Continue every 15 minute checks for safety. 3. Encourage individual, group and milieu therapy. 4. Encourage sober living treatment after discharge at the highest level care to which he is willing to commit. 5. Obtain collateral information. Will speak to parents about treatment and him returning home. 6. Evaluate against the backdrop of the 96-hour hold. PDMP PDMP Reviewed: Not Reviewed Involuntary Hold Information 2 Hold Status: Legal Status: 21 Day Hold Date/Time Hold Expires: 21 filed 96 Hour Hold: 96 Hour Involuntary Admission: No Attestations NPU 2 Medical Necessity Statement*: Inpatient hospitalization is medically necessary the clinically appropriate intervention at this time. We will monitor/initiate medications and make changes as indicated. His likely length of stay is 2-4 days. 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
[2024-10-19 21:47] VITALS: BP 106/69; PULSE 98; RESP 18; TEMP 36.6; O2SAT 97
[2024-10-20 06:00] VITALS: BP 117/75; PULSE 81; RESP 19; TEMP 36.4; O2SAT 97; BMI 33.7
[2024-10-20] MEDS: venlafaxine ER (24HR) 150 mg Capsule PO (07:58)
[2024-10-20 13:07] VITALS: BP 127/75; PULSE 119; RESP 16; TEMP 36.9; O2SAT 98
--- NOTE | 2024-10-20 19:28 | W.PM.NPUPNS ---
Subjective NPU Subjective: Patient presented today reporting that things are going all right. His father came to visit him and it appears that they are going to let him come there and it is not clear whether they are going to have any expectation for intensive treatment. We discussed working with the treatment team tomorrow making sure that they have an understanding of whether the family is fine with him coming home and discharging accordingly. We reiterated that we believe he needs intensive inpatient sober living treatment moving forward. He denied any side effects to his medication. Mental Status Exam MSE Comments: This is an overweight versus obese white male in hospital scrubs with limited grooming and improving eye contact. No abnormal movements except for mild psychomotor retardation. Cooperative with exam in no acute distress. Speech was decreased in volume with some dysarthria. Mood described as better, affect congruent. Thought process linear. Thought content: Patient denied suicidal or homicidal ideation, there were no delusions reported or noted, he denied any auditory or visual hallucinations. Attention and concentration were intact and memory appeared more reliable but none were formally tested. He was alert and oriented x 3. Insight, judgment and impulse control were limited but improving. Vitals/I&O/Wt Last Vital Signs Temp 98.5 F 10/20/24 20:21 Pulse 102 H 10/20/24 20:21 Resp 18 10/20/24 20:21 BP 120/78 10/20/24 20:21 Pulse Ox 98 10/20/24 20:21 O2 Del Method Room Air 10/20/24 20:21 O2 Flow Rate 95 10/14/24 19:59 Weight last 48 hrs Weight 112.945 kg Data NPU 10/13/24 13:35 10/13/24 13:35 A&P Assessment and plan 1. Impulse control disorder, unspecified: 2. Diffuse axonal brain injury: 3. 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 Methamphetamine use disorder, severe: 5. Suicidal ideation: Plan: This is a 34-year-old white male with a history of significant head trauma with reports of increased problems with mental health and addiction issues who presents on a 96-hour hold he reports by his parents as he downplays the significance of addiction and these issues. Currently under evaluation on a 96-hour involuntary psychiatric hold following parental concern related to social media posts. History of prior psychiatric hospitalization for suicidal ideation two years ago. No current suicidal ideation, homicidal ideation, hallucinations, or paranoia reported. History of substance use. Continues on current psychiatric medication 1. Continue current medications. Consider possible changes. Consider increasing the Invega to 6 mg p.o. daily 2. Continue every 15 minute checks for safety. 3. Encourage individual, group and milieu therapy. 4. Encourage sober living treatment after discharge at the highest level care to which he is willing to commit. 5. Obtain collateral information. Will speak to parents about treatment and him returning home. 6. Evaluate against the backdrop of the 96-hour hold. PDMP PDMP Reviewed: Not Reviewed Involuntary Hold Information Hold Status: Legal Status: 21 Day Hold Date/Time Hold Expires: 21 filed 96 Hour Hold: 96 Hour Involuntary Admission: No Attestations NPU Medical Necessity Statement*: Inpatient hospitalization is medically necessary the clinically appropriate intervention at this time. We will monitor/initiate medications and make changes as indicated. His likely length of stay is 1-3 days. 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
[2024-10-20 20:21] VITALS: BP 120/78; PULSE 102; RESP 18; TEMP 36.9; O2SAT 98
[2024-10-21 06:00] VITALS: BP 113/70; PULSE 100; RESP 17; TEMP 36.7; O2SAT 96
[2024-10-21] MEDS: venlafaxine ER (24HR) 150 mg Capsule PO (08:22)
--- NOTE | 2024-10-21 08:26 | NUR.SHIFT ---
Pt states that he didn't sleep great last night, he was awake all night. He rates his anxiety a 2/10 and states that is just because he wants to go home. No depression. No reports of SI/HI or hallucinations. No pain reported. He is calm and cooperative on assessment, but is irritable in nature. He is ready to d/c today.
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
--- NOTE | 2024-10-21 12:19 | DCPLANNER ---
IMM completed on 10/21/2024 @ [id number] and pt was given information on paper.
[2024-10-21 13:46] VITALS: BP 135/74; PULSE 73; RESP 16; TEMP 37; O2SAT 98
[2024-10-21 14:40] VITALS: BP 135/74; PULSE 73; RESP 16; TEMP 37; O2SAT 98
== END 2024-10-21 17:22 | disposition home or self-care (01) | DRG 881 ==
LOC: ER 13:55 → NP 14:06
PROVIDERS: Admitting Provider Psychiatry & Neurology Psychiatry; Emergency Provider Emergency Medicine; PCP Registered Nurse; Visit Provider Psychiatry & Neurology Psychiatry
DX: F32.A Depression, unspecified (principal); R45.851 Suicidal ideations; F15.20 Other stimulant dependence, uncomplicated; F41.9 Anxiety disorder, unspecified; F14.11 Cocaine abuse, in remission; M10.9 Gout, unspecified; E66.9 Obesity, unspecified; Z68.33 Body mass index [BMI] 33.0-33.9, adult; F63.9 Impulse disorder, unspecified
CPT/HCPCS: 80053; 80306; 80307; 85025; 96372; 97150; 97165; 99285; J1630; J2060; J9999

== ENCOUNTER → 2025-01-07 13:32 | Outpatient (BNVA) | payer MEDICARE, SELFPAY | PROVIDERS: PCP Registered Nurse; Visit Provider Nurse Practitioner Psychiatric/Mental Health | DX: Z79.899 Other long term (current) drug therapy (principal) | CPT/HCPCS: 80053; 80061; 83036 ==